=== PATIENT | male | born 1960 | race Caucasian/White ===

== ENCOUNTER 2019-06-02 11:24 | Emergency (ER) | payer OTHER ==
[~2019-06-02] VITALS: Ht 172.7 cm; Wt 70.3 kg
[2019-06-02 13:40] VITALS: BP 142/67
== END 2019-06-02 13:40 | disposition home or self-care (01) ==
LOC: ER 11:24
DX: S46.212A Strain of muscle, fascia and tendon of other parts of biceps, left arm, initial encounter (principal); Z88.0 Allergy status to penicillin; Z88.1 Allergy status to other antibiotic agents; W22.8XXA Striking against or struck by other objects, initial encounter; Y92.89 Other specified places as the place of occurrence of the external cause; Y99.0 Civilian activity done for income or pay; Y99.8 Other external cause status